=== PATIENT | male | born 1980 | race African-American/Black ===

== ENCOUNTER 2019-02-14 12:25 | Emergency (ER) | payer OTHER ==
[~2019-02-14] VITALS: Ht 172.7 cm; Wt 113.6 kg
[2019-02-14 13:12] VITALS: BP 129/72
[2019-02-14] MEDS ORDERED: AMLO10TA7 PO (15:51)
== END 2019-02-14 14:31 | disposition left against medical advice (07) ==
LOC: EMS 12:46
DX: A64 Unspecified sexually transmitted disease (principal); Z53.21 Procedure and treatment not carried out due to patient leaving prior to being seen by health care provider

== ENCOUNTER 2019-02-14 15:09 | Emergency (ER) | payer OTHER ==
[~2019-02-14] VITALS: Ht 177.8 cm; Wt 72.7 kg
[2019-02-14 15:45] VITALS: BP 142/99
[2019-02-14] MEDS ORDERED: AMLO10TA7 PO (15:51)
[2019-02-14] MEDS ORDERED: CefTRIAXone SODIUM 1 GM/VIAL IM ONE (16:30)
[2019-02-14] MEDS ORDERED: AZITHROMYCIN 250 MG TABLET PO ONE (16:30)
[2019-02-14] MEDS ORDERED: LIDOCAINE/PF 1% 2 ML VIAL IM ONE (16:30)
== END 2019-02-14 18:03 | disposition home or self-care (01) ==
LOC: EMS 15:12
DX: R36.9 Urethral discharge, unspecified (principal); I10 Essential (primary) hypertension; F17.210 Nicotine dependence, cigarettes, uncomplicated; Z88.8 Allergy status to other drugs, medicaments and biological substances
CPT/HCPCS: 96372; 99283; 99406; J0696; J3490